=== PATIENT | female | born 1970 | race Caucasian/White ===

== ENCOUNTER → 2017-06-08 | Outpatient (CLI) | payer MEDICAID ==
[~2017-06-08] MED LIST: ALLOPURINOL100 M1 PO; COLCHICINE0.6 M4 PO; FLEXERIL10 MG PO; LEVOTHYROXIN0.175 MG PO; LOVASTATIN20 MG PO; NIFEDIPINE XL 330 MG PO; PERCOCET 325 MG1 TA4 PO; PRINIVIL10 MG PO; VENLAFAXINE HCL75 M1 PO
--- NOTE | 2017-06-09 07:10 | RADIOLOGY REPORT PS360 ---
MRI-L-SPINE W/O, MRI-3D RENDERING/MYELOGRAM HISTORY: Low back pain and bilateral leg pain WORSENING BACK PAIN ORDERING PHYSICIAN: GREG ALTMAN CRNA PATIENT AGE: 46 years COMPARISON: None TECHNIQUE: Standard multiplanar multiecho sequences are performed without contrast. 3-D MIP and myelographic images are also rendered and reviewed FINDINGS: There is mild lumbar scoliosis convex right. Bilateral renal cortical cysts are noted. The spinal canal is prominent throughout. The spinal cord ends at the T12-L1 level. T11-T12, T12-L1, L1-L2, and L2-L3 have an unremarkable appearance. L3-L4: Mild disc desiccation with minimal bulging disc without impingement. L4-5: Unremarkable. L5-S1: There is mild anterolisthesis of L5 on S1 of approximately 3 mm. There is decrease in the disc space with disc desiccation at that level along with increased T2 signal involving the posterior aspect of the disc which may represent an annular tear. No disc herniation or canal stenosis. IMPRESSION: 1. Mild dextroscoliosis. 2. Mild degenerative disc disease L3-L4. 3. Mild to moderate degenerative disc disease L5-S1 with suspected annular tear of the disc but no evidence of disc herniation. There is minimal anterolisthesis of L5 on S1 at 3 mm
== END ==
LOC: RAD 05-19 16:15
DX: M54.5 Low back pain (principal)

== ENCOUNTER → 2017-08-24 | Day surgery (SDC) | payer MEDICAID ==
[~2017-08-24] VITALS: Ht 162.6 cm; Wt 95.3 kg
[2017-08-24 14:59] VITALS: BP 119/74
[2017-08-24 15:20] VITALS: BP 119/74; BP 120/88
--- NOTE | 2017-08-24 15:23 | Procedure Note ---
Procedure detail Date of procedure: 08/24/17 Anesthesiologist: Marlon Medina Complications: None Pre-procedure diagnosis: Degenerative disc disease lumbar spine multiple levels. RIGHT sacroiliitis. Lumbar radiculopathy symptoms. Post-procedure diagnosis: Same. Indications for procedure: Very pleasant 46-year-old white female that we've been treating for chronic low back pain secondary to degenerative disease lumbar spine multiple levels lumbar radiculopathy symptoms. Most recently she's had extreme point tenderness over the RIGHT SI joint. She complains of RIGHT buttock pain that she describes as constant, dull, aching. She rates the pain 9/10. Patient reports the pain intensifies with sitting for any length of time. She presents [facility] for RIGHT SI joint injection. Procedure detail: Procedure: Right sacroliliac joint injection under fluoroscopy Informed consent was obtained and the risk and benefits of the procedure were explained to the patient.~ The patient was taken to the procedure room and noninvasive monitors were placed including noninvasive blood pressure cuff and pulse oximeter.~ The patient was placed prone on the procedure table.~ The~ right hip was cleansed using Betadine as a cleansing solution.~ C-arm fluorosocpy was used to view the right SI joint.~ The skin and subcutaneous tissues were anesthetized using Lidocaine 1.5% and a 25-gauge needle.~ After this, a 22-gauge spinal needle was inserted under fluoroscopic guidance into the inferior aspect of the right SI joint.~ Omnipaque dye was injected and a good spread was seen throughout the joint.~ After this, approximately 5 mL of bupivacaine 0.25% and Depo-Medrol 40 mg was incrementally injected into the sacroiliac joint.~ The patient tolerated the procedure well with no complications.~ The patient was observed in the Pain Clinic, then discharged home neurologically intact.~ Plan and disposition: Patient was reevaluated 10 minutes post procedure. She reports 100 percent improvement in terms of her RIGHT hip and buttock pain. She'll return to see us for further evaluation. at [id number]
[2017-08-24 15:56] VITALS: BP 128/74
== END ==
LOC: PM 14:47
PROC: 3E0U33Z Introduction of Anti-inflammatory into Joints, Percutaneous Approach (ICD-10-PCS; principal; 2017-08-24)
PROC: 3E0U3BZ Introduction of Anesthetic Agent into Joints, Percutaneous Approach (ICD-10-PCS; 2017-08-24)
DX: M46.1 Sacroiliitis, not elsewhere classified (principal); M51.16 Intervertebral disc disorders with radiculopathy, lumbar region

== ENCOUNTER → 2017-08-27 | Outpatient (CLI) | payer MEDICAID ==
[2017-08-27 14:02] LABS: AMPHETAMINES/METAMPHETAMINES NEGATIVE ng/mL (<1000)
[2017-08-31 10:40] LABS: Codeine Negative (Cutoff=100); Hydrocodone Positive (.); Hydromorphone Negative (Cutoff=100); Morphine Negative (Cutoff=100); Opiates Positive (.)
== END ==
LOC: LAB 12:44
PROVIDERS: Anesthesiology
DX: Z79.899 Other long term (current) drug therapy (principal)

== ENCOUNTER → 2017-10-15 | Day surgery (SDC) | payer MEDICAID ==
[~2017-10-15] VITALS: Ht 162.6 cm; Wt 88.5 kg
[2017-10-15 09:07] VITALS: BP 138/68
[2017-10-15 09:19] VITALS: BP 138/68
[2017-10-15 09:20] VITALS: BP 154/79
--- NOTE | 2017-10-15 09:25 | Procedure Note ---
Procedure detail Date of procedure: 10/15/17 Anesthesiologist: Marlon Medina Complications: None Pre-procedure diagnosis: Bilateral sacroiliitis Post-procedure diagnosis: Same Indications for procedure: Pleasant 46-year-old white female we have been treating for quite some time for chronic low back pain secondary to degenerative disease of her spine. Chronic sacroiliitis. She presents to our procedural clinic today for bilateral SI joint injections. These of been very helpful to her in the past. Procedure detail: Informed consent was obtained and the risks and benefits of the procedure were explained to the patient. The patient was taken to the procedure room and noninvasive monitors were placed including a noninvasive blood pressure cuff and pulse oximeter. The patient was placed prone on the procedure table. Both hips were cleansed using Betadine as a cleansing solution. C-arm fluoroscopy was used to view the right sacroiliac joint. The skin and subcutaneous tissues were anesthetized using lidocaine 1.5% and a 25-gauge needle. After this, a 22-gauge spinal needle was inserted under fluoroscopic guidance into the inferior aspect of the right sacroiliac joint. Omnipaque dye was injected and good spread was seen throughout the joint. After this, approximately 5 mL of bupivacaine, 0.25% and Depo-Medrol, 40 mg was incrementally injected into the right sacroiliac joint. We then moved to the left sacroiliac joint. The skin and subcutaneous tissues were anesthetized using lidocaine 1.5% and a 25-gauge needle. After this, a 22- gauge spinal needle was inserted under fluoroscopic guidance into the inferior aspect of the left sacroiliac joint. Omnipaque dye was injected and good spread was seen throughout the joint. After this, approximately 5 mL of bupivacaine, 0.25% and Depo-Medrol, 40 mg was incrementally injected into the left sacroiliac joint. The patient tolerated the procedure well with no complications. The patient was observed in the Pain Clinic and then was discharged home neurologically intact. Plan and disposition: Patient was evaluated 10 minutes post procedure. She is doing very well. She'll return to see us for further evaluation. at [id number]
[2017-10-15 09:35] VITALS: BP 135/73
== END ==
LOC: PM 08:45
PROC: 3E0U33Z Introduction of Anti-inflammatory into Joints, Percutaneous Approach (ICD-10-PCS; principal; 2017-10-15)
PROC: 3E0U3BZ Introduction of Anesthetic Agent into Joints, Percutaneous Approach (ICD-10-PCS; 2017-10-15)
DX: M46.1 Sacroiliitis, not elsewhere classified (principal)
CPT/HCPCS: G0260; J1030